=== PATIENT | male | born 2005 | race Caucasian/White ===

== ENCOUNTER 2023-06-14 21:57 | Emergency (ER) | payer OTHER ==
[~2023-06-14] VITALS: Ht 175.3 cm; Wt 86.4 kg
[2023-06-15 00:47] VITALS: BP 146/71; TEMP 98.2; O2SAT 99
== END 2023-06-15 00:49 | disposition home or self-care (01) ==
LOC: M ED 21:57
DX: F18.10 Inhalant abuse, uncomplicated (principal); V47.5XXA Car driver injured in collision with fixed or stationary object in traffic accident, initial encounter; Y92.410 Unspecified street and highway as the place of occurrence of the external cause; Y93.89 Activity, other specified; Y99.1 Military activity